=== PATIENT | female | born 1970 | race Caucasian/White ===

== ENCOUNTER → 2024-10-03 | Outpatient (CLI) | payer SELFPAY, OTHER ==
--- NOTE | 2024-10-03 13:12 | CT_ITS ---
STUDY: CT FACIAL BONES WITH CONTRAST REASON FOR EXAM: Female, 54 years old. Mass soft tissue of face RADIATION DOSAGE (If Supplied By Facility): CTDIvol = ( 29.38 ) mGy, DLP = ( 488.69 ) mGycm TECHNIQUE: The patient was scanned in a multi detector CT scanner. Transaxial imaging was performed following the intravenous administration of IV 100mL Isovue-300. Sagittal and coronal images were reconstructed. Individualized dose optimization techniques were used for this CT. COMPARISON: None. FINDINGS: Small benign appearing submental lymph nodes. The palpable abnormality corresponds to a 1 cm x 1.5 cm x 1 cm cystic structure at the left nasal labial junction. Normal orbital jha and orbital contents. Normal nasal bones and anterior nasal spine. Normal facial bones. There is no demonstrated fracture. Normal visualized paranasal sinuses. CT/Sinus/Facial Bone WITH Contras IMPRESSION: The palpable abnormality corresponds to 1 cm x 1.5 cm x 1 cm cystic structure at the left nasal labial junction. Electronically Signed: Bridger Mitchell MD at 15:04 EST ,
== END | disposition home or self-care (01) ==
PROVIDERS: PCP Family Medicine; Referring Provider Surgery Plastic and Reconstructive Surgery; Visit Provider Surgery Plastic and Reconstructive Surgery
DX: M79.89 Other specified soft tissue disorders (principal)
CPT/HCPCS: 70487; Q9967

== ENCOUNTER 2024-10-17 10:34 | Day surgery (SDC) | payer OTHER, SELFPAY ==
[2024-10-17] VITALS (7 sets, daily range): BP systolic 118–164; BP diastolic 85–99; PULSE 63–88; RESP 16–20; TEMP 36.3–36.6; O2SAT 96–99; BMI 40.8
[2024-10-17] MEDS: 0.9% Normal Saline (1000mL) 1,000 ML 15 ML IV (11:00)
[2024-10-17 11:03] LABS: Internal QC Validated? YES +Cl - CLEAR BKGD
[2024-10-17 11:04] LABS: Pregnancy, Urine Negative Negative
--- NOTE | 2024-10-17 11:10 | PRE.ANES_ITS ---
ASA Classification* ASA Classification ASA Classification: 3 Assessment & Plan Anesthesia* Anesthesia Assessment Anesthesia Assessment: Discussed sedation and/or anesthesia options, risks, benefits, and alternatives with patient/parents/legal guardian/POA. Questions invited. The patient/parents/legal guardian/POA seems to understand and agrees to proceed with anesthesia plan. Reviewed the physical assessment, medical history, allergy history and patient home medications list prior to surgery/procedure/anesthetic and documented any changes. Performed airway and anesthesia risk assessments. Anesthesia Type Anesthesia Type: General History Source History Obtained from:: Patient and Chart Anesthesia Focused Assessment* Temperature: 97.3 F Pulse Rate: 88 Blood Pressure: 164/99 Respiratory Rate: 16 Pulse Ox: 99 Oxygen Delivery Method: Room Air Airway Assessment Mouth opens: >3 cm Mallampati Score: II Focused Labs Anesthesia Preop lab: CBC CHEMISTRY COAG Urine Test Negative Negative 10/17/24 10:45 Pre-Assessment Diagnosis/Proposed Procedure Planned Operative Procedure(s): EXCISION LEFT FACE LESION Anesthesia History Anesthesia History - half backer: Anesthesia History - half backer Hx Hospitalization No 10/16/24 09:55 Any Problems With Anesthesia No 10/16/24 09:55 Cholinesterase deficiency No 10/16/24 09:55 You/Your Family Experience No 10/16/24 09:55 fever (hyperthermia) with Relationship Recent Exposure to Contagious No 10/17/24 10:55 Disease Does patient have nerve No 10/16/24 09:55 stimulator Patient instructed to have device shut off --Does patient have Pacemaker No 10/17/24 10:55 or ICD? When Was Last Pacemaker Check QUESTION #4 FULL TEXT: You/Your Family Experience fever (hyperthermia) with Anesthesia Last Oral Intake Last Oral intake: Last Oral Intake NPO since 21:00 10/17/24 10:55 Meds taken in AM with sips of Yes 10/17/24 10:55 water? Meds patient instructed to AMLODIPINE,TELMISARTAN 10/17/24 10:55 take am of surgery PONV PONV - half backer: PONV - half backer Female Yes 10/16/24 09:55 HX of Motion Sickness No 10/16/24 09:55 HX of N/V After Surgery No 10/16/24 09:55 Non-Smoker Yes 10/16/24 09:55 Duration of Surgery greater Yes 10/16/24 09:55 than 60 minutes Number of Risk Factors 3 10/16/24 09:55 PONV Score Moderate Risk 10/16/24 09:55 Height & Weight Height & Weight: Anesthesia: Height & Weight Height 5 ft 10/17/24 10:55 Weight: 95 kg 10/17/24 10:55 Body Mass Index (BMI) 40.8 10/17/24 10:55 Respiratory Assessment Respiratory Assessment - half backer: Respiratory Tract Infection Hx - half backer Hx Respiratory Tract Infection No 10/16/24 09:55 STOP Sleep Apnea STOP Sleep Apnea - half backer: STOP Sleep Apnea - half backer Hx Hypertension Yes: CONTROLLED WITH MEDS 10/16/24 09:55 Hx Sleep Apnea No 10/16/24 09:55 CPAP BIPAP Do you snore loudly (louder Yes 10/16/24 09:55 than talking or can be heard Do you often feel tired/ No 10/16/24 09:55 fatigued/ sleepy during daytime? Has anyone observed you stop No 10/16/24 09:55 breathing during sleep? STOP Results Positive 10/16/24 09:55 QUESTION #5 FULL TEXT : Do you snore loudly (louder than talking or can be heard through closed doors)? 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 Specify any problems Hx of Preganancy in last 3 No 10/16/24 09:55 Months Nurse Filling Out Transfusion DSCHRIBER 10/16/24 09:55 & Questions: Date: 10/16/24 10/16/24 09:55 Time: 09:57 10/16/24 09:55 Patient unable to answer at this time (ie. confused, unrespo /Reproduction History /Reproductive History - half backer: /Reproductive Hx- half backer Hx Now No 10/16/24 09:55 Gestational Age (in weeks): EDC: Hx Hx Para Hx Section SAB No 10/16/24 09:55 Active Medications Active Medications: Current Medications Generic Name Dose Route Start Last Admin Trade Name Freq PRN Reason Stop Dose Admin Cefazolin Sodium 2 gm/ N/A 20 mls @ 400 mls/hr 10/17/24 12:20 IV 10/17/24 12:22 PREOP ONE Sodium Chloride 1,000 mls @ 15 mls/hr 10/17/24 10:40 10/17/24 11:00 IV 10/22/24 23:59 15 mls/hr .Q48H MARIE Administration Protocol [facility] Medical History (Updated 10/17/24 @ 11:[address] Bruno García MD) Morbid obesity Wears glasses Wears dentures History of diverticulitis Heartburn Non-smoker Hypertension Home Medications ?Medication ?Instructions ?Recorded ?Last Taken ?Type amlodipine 5 mg tablet 5 mg PO QDAY 08/31/24 10/17/24 History telmisartan 40 mg tablet (Micardis) 40 mg PO QDAY 10/12/24 10/17/24 History Allergy/AdvReac Type Severity Reaction Status Date / Time No Known Allergies Allergy Verified 10/17/24 10:54 Surgical History (Updated 10/16/24 @ 10:01 by Maura Lin) History of Social History Smoking Status: Never smoker alcohol intake: never substance use type: does not use additional social history: no personal or family hx of blood clots Addt'l Information Additional Findings: No Family hx of anesthesia problems. Patient reports no previous anesthetics. Review of Systems (Anesthesia) ROS Narrative System reviewed and no additional complaints, except as documented. Physical Exam Const alert and oriented x3 HEENT Teeth and Gingiva: dentures Neck full ROM Resp normal respiratory effort and normal air movement Cardio regular rate Neuro moves all extremities
--- NOTE | 2024-10-17 11:56 | HP.PCM.SX_ITS ---
HPI - General HPI Narrative STAN AVILA, is a 54 F who presents with left face lesion. Current Encounter (DATE OF SURGERY H&P UPDATE): I saw and examined the patient this morning in pre-operative holding. We discussed risks and benefits of today's surgery and they would like to proceed. NO CHANGE in health history since last seen and evaluated. Ready to proceed with surgery. [facility] Medical History Morbid obesity Wears glasses Wears dentures History of diverticulitis Heartburn Non-smoker Hypertension Home Medications ?Medication ?Instructions ?Recorded ?Last Taken ?Type amlodipine 5 mg tablet 5 mg PO QDAY 08/31/24 10/17/24 History telmisartan 40 mg tablet (Micardis) 40 mg PO QDAY 10/12/24 10/17/24 History Allergy/AdvReac Type Severity Reaction Status Date / Time No Known Allergies Allergy Verified 10/17/24 10:54 Surgical History History of Social History Smoking Status: Never smoker alcohol intake: never substance use type: does not use additional social history: no personal or family hx of blood clots Vital Signs Vital Signs Vital Signs: 10/17/24 10:55 10/17/24 10:55 10/17/24 11:20 Temperature 97.3 F L 97.3 F L Temperature Source Temporal Pulse Rate 88 88 Respiratory Rate 16 16 Respiratory Pattern Normal Blood Pressure 164/99 H 164/99 H Blood Pressure Mean 120 Blood Pressure Source Monitor Blood Pressure Position Sitting Blood Pressure Location Right Arm Pulse Ox 99 99 Oxygen Delivery Method Room Air Room Air Weight Weight: 209 lb 7.026 oz Body Mass Index (BMI) 40.8 Physical Exam Narrative Left face lesion present. No neck lymphadenopathy There is no material expressed from the lower puncta when I press on the mass (does not appear to be a part of the lacrimal system). Results Lab / Micro Data Labs: Laboratory Results - last 24 hr 10/17/24 10:45: Urine Test Negative Assessment & Plan Assessment/Plan (1) Mass of soft tissue of face: PLAN: I talked the patient extensively about the risks of surgery, including bleeding, infection, recurrence of the mass, scaring, damage to surrounding structures, surgical site dehiscence and wound formation, need for wound care, need for repeat operations, failure to obtain the desired result, DVT/PE (Caprini is 4, no history of clotting problems personally or in family), and the risks of anesthesia including . The benefits and alternatives of this surgery were also discussed. All of their questions were answered, and they agreed to proceed with surgery. INTERVAL H&P PLAN, DATE OF SURGERY: We will proceed with surgery today. I marked the mass in preop and she and her were in agreement.
[2024-10-17] MEDS: Cefazolin 2 GM in Syringe IV (12:40)
[2024-10-17] MEDS: Bupiv/Epi 0.25% 30 ML Vial (12:50)
--- NOTE | 2024-10-17 12:55 | MASS_PTH ---
PATIENT: STAN AVILA LOC: [facility] [place] U#:[id number] AGE/SX: 54/F ROOM: RE10/17/[address]: Dr. Bennie Anand MD : 1970 BED: DIS: 10/17/2024 SPEC #: [id number] RECD: 10/17/24 14:31 STATUS: SIRIA JOSÉ #: [id number] DOROTA: 10/17/24 12:[address]: Bennie Anand DEPT: SURGICAL PATHOLOGY RECD BY: Deedee Bustamante ENTERED: 10/18/24 10:36 SP TYPE: Mass OTHR DR: No Primary Care Phys Tissues: Face, NOS Procedures: Surgery Specimen Level IV HEADER OPERATION: Excision of left face lesion PRE-OP DIAGNOSIS: Mass of soft tissue of face TISSUE SUBMITTED: Left face mass MICROSCOPIC DIAGNOSIS Left face mass, excision: Epidermal inclusion cyst. 10/19/2024 MICROSCOPIC DESCRIPTION Slides are reviewed. GROSS DESCRIPTION Received in fixative is one container labeled with the patient's name and designated Left face mass. The specimen consists of multiple pieces of a previously ruptured cyst filled with hall-white cheesy material measuring in aggregate 3 x 2.5 x 0.3cm. The entire specimen is submitted in one cassette. 10/18/2024 TC:5 CPT:28523
[2024-10-17] MEDS: Povidone Iodine 30 ML Opthalmic Sol 1 DRP (13:18)
--- NOTE | 2024-10-17 13:18 | PCM.POST.ANE ---
Anesthesia: Postop Eval I Current Vital Signs Temperature: 97.9 F Pulse Rate: 83 Blood Pressure: 131/89 Respiratory Rate: 20 Pulse Ox: 96 Assessment Airway patent: Yes Spontaneous unlabored respirations: Yes nausea: No Vomiting: No Anesthesia Complication: No Fluid Hydration Crystalloid volume administer (ml): 300 Total IV fluid infused: 300 Progress Note Anesthesia document: Postop Eval 1 completed: Yes
--- NOTE | 2024-10-17 14:10 | POSTOPAN2_ITS ---
Anesthesia Postop Eval I Sum Postop Eval Completion status Anesthesia document: Postop Eval 1 completed: Yes Anesthesia Postop Eval I Summary Anesthesia Postop Eval I Summary: Anesthesia Postop Eval I: Assessment Summary Airway patent Yes 10/17/24 13:18 [email or web address] Spontaneous unlabored Yes 10/17/24 13:18 [email or web address] [email or web address] respirations Mental status nausea No 10/17/24 13:18 [email or web address] [email or web address] Vomiting No 10/17/24 13:18 [email or web address] Anesthesia Postop Eval I: Fluid Summary Crystalloid volume administer 300 10/17/24 13:18 [email or web address] [email or web address] (ml) Colloids volume administered ( ml) Blood Product volume administered (ml) Total IV fluid infused 300 10/17/24 13:18 [email or web address] [email or web address] Anesthesia Postop Eval I: Summary Notes Anesthesia Complication No 10/17/24 13:18 [email or web address] [email or web address] Anesthesia Complication Comment: Post-operative progress note Anesthesia: Postop Eval II Evaluation Mental status: Awake and Calm Pain Level: 1 nausea: No Vomiting: No Complications Anesthesia Complication: No
--- NOTE | 2024-10-17 14:10 | PCM.POSTANE2 ---
Anesthesia Postop Eval I Sum Postop Eval Completion status Anesthesia document: Postop Eval 1 completed: Yes Anesthesia Postop Eval I Summary Anesthesia Postop Eval I Summary: Anesthesia Postop Eval I: Assessment Summary Airway patent Yes 10/17/24 13:18 [email or web address] Spontaneous unlabored Yes 10/17/24 13:18 [email or web address] respirations Mental status nausea No 10/17/24 13:18 [email or web address] Vomiting No 10/17/24 13:18 [email or web address] Anesthesia Postop Eval I: Fluid Summary Crystalloid volume administer 300 10/17/24 13:18 [email or web address] (ml) Colloids volume administered ( ml) Blood Product volume administered (ml) Total IV fluid infused 300 10/17/24 13:18 [email or web address] Anesthesia Postop Eval I: Summary Notes Anesthesia Complication No 10/17/24 13:18 [email or web address] Anesthesia Complication Comment: Post-operative progress note Anesthesia: Postop Eval II Evaluation Mental status: Awake and Calm Pain Level: 1 nausea: No Vomiting: No Complications Anesthesia Complication: No
--- NOTE | 2024-10-17 16:10 | OP.PCM_ITS ---
Operative Report (Standard) Operative Information Date of Procedure: 10/17/24 Pre-Operative Diagnosis: Left cheek mass Post-Operative Diagnosis: Same Surgery/Procedure Performed: 1) Excision of left cheek subcutaneous mass, 1.8 x 1.7 cm (CPT: 60694) 2) Primary closure of left cheek wound, 2 cm CPT: 00168) director fundraising: No Type of Anesthesia: General/Supplemental (with 5 cc of 0.25% Marcaine with 1:2 00,000 epinephrine ) RN Documented Start/Stop Times: Operation Date: 10/17/24 12:55 Case Time Into Pre-Op 10/17/24 10:39 Anesthesia Start 10/17/24 12:40 Into Room 10/17/24 12:40 Procedure Start 10/17/24 12:53 Procedure End 10/17/24 13:08 Anesthesia End 10/17/24 13:12 Out of Room 10/17/24 13:12 Into Recovery 10/17/24 13:15 Out of Recovery 10/17/24 13:26 Into Phase II Recovery 10/17/24 13:27 Out of Phase II 10/17/24 14:23 Procedure Start Time: 12:53 Procedure Stop Time: 13:08 Select all DRAINS/GRAFTS/IMPLANTS that apply: None Estimated Blood Loss: minimal Specimen collected: Yes Description of specimen(s) removed: left cheek subcutaneous mass Description of surgery: Patient was correct identified in preoperative holding and taken back to the operative room where she was administered general anesthesia with an LMA and anesthetized with above-noted local. Was given time to take effect. A timeout was performed. Patient was prepped and draped in sterile fashion. A 15 blade scalpel was used to make a direct incision over the mass and careful dissection was carried out with tenotomy scissors around the wall of what appeared to be a cyst. The cyst was removed circumferentially and sent to pathology. It measured 1.8 x 1.7. The wound was irrigated with copious amounts normal saline. Hemostasis was obt ained with Bovie electrocautery and the wound was closed with 3-0 Monocryl deep dermal followed by 5-0 Prolene interrupted sutures and Steri-Strips for total intermediate closure 2 cm. The patient tolerated the procedure well and was awakened and taken the PACU in stable condition. Surgical Findings: Consistent with a deep (next to muscle and in subcutaneous tissues) epidermal inclusion cyst Complications Complications: No Admit VTE Documentation VTE Mechan Device Prophylaxis: SCD's
== END 2024-10-17 14:23 | disposition home or self-care (01) ==
LOC: SDC 10:36 → AC 10:38
PROVIDERS: Anesthesiology; Visit Provider Surgery Plastic and Reconstructive Surgery
PROC: (CPT 11442; principal; 2024-10-17 12:45)
DX: L72.0 Epidermal cyst (principal); I10 Essential (primary) hypertension; Z79.899 Other long term (current) drug therapy
CPT/HCPCS: 11442; 12051; 00300; 81025; 88305; J2405